=== PATIENT | female | born 1980 ===

== ENCOUNTER 2025-03-20 00:40 | Day surgery (SDC) | payer BC, SELFPAY ==
[2025-03-10 15:04] VITALS: BMI 20.1
--- OUTSIDE RECORDS SUMMARY | 2025-03-20 00:43 | XMS_ITS | Clinical Summary ---
Author Organization [facility] Address [address] [facility], [place] [address] Phone Care Team Providers Care Dry Man Name Role Phone Eduardo Mayes MD Primary Care Provider [phone] Allergies No known active allergies Medications [place] Thyroid 30 mg tablet 03/20/2022 Active modafiniL (PROVIGIL) 200 mg Tablet 03/02/2022 Active Active Problems No known active problems Social History Tobacco Use Types Packs/Day Years Used Date Smoking Tobacco: Never Smokeless Tobacco: Never Alcohol Use Standard Drinks/Week Comments Not Currently 0 (1 standard drink = 0.6 oz pur e alcohol) Comments No Sex and Gender Information Value Date Recorded Sex Assigned at Not on file Legal Sex Female 9:43 AM CDT Gender Identity Not on file Sexual Orientation Not on file Last Filed Vital Signs Vital Sign Reading Time Taken Comments Blood Pressure 92/60 03/23/2022 8:14 AM CDT Pulse 58 03/23/2022 8:14 AM CDT Temperature 36.9 C (98.5 F) 03/23/2022 8:14 AM CDT Respiratory Rate - - Oxygen Saturation 99% 03/23/2022 8:14 AM CDT Inhaled Oxygen Concentration - - Weight 52.2 kg (115 lb) 03/23/2022 8:14 AM CDT Height 157.5 cm (5' 2) 03/23/2022 8:14 AM CDT Body Mass Index 21.03 03/23/2022 8:14 AM CDT Plan of Treatment Health Maintenance Due Date Last Done Comments DTAP/TDAP/TD VACCINES (1 - Tdap) 12/14/1998 HEPATITIS B VACCINES (1 of 3 - 19+ 3-dose series) 12/14/1998 HPV/Cotest (21-29) 12/14/2000 CERVICAL CANCER SCREENING 12/14/2009 HPV/Cotest (30-65) 12/14/2009 PAP SMEAR 12/14/2009 BREAST CANCER SCREENING 02/24/2022 02/24/2021 INFLUENZA VACCINE (#1) 2024 COLORECTAL SCREENING 12/14/2024 Colorectal Cancer Screening 12/14/2024 FIT-DNA Q 3 years 12/14/2024 FIT/FOBT Q 1 year 12/14/2024 Flex Sig/CT Colonography Q 5 years 12/14/2024 HPV VACCINES Aged Out No longer eligi ble based on patient's age to complete this topic Procedures Procedure Name Priority Date/Time Associated Diagnosis Comments MAMMO 3D MICHEAL SCREEN BILAT W OR WO CAD Routine 02/24/2021 from Last 3 Months or Most Recently Relevant to Health Maintenance Results * MAMMO SCRN BILAT 3D MICHEAL W OR WO CAD (02/24/2021) Anatomical Region Laterality Modality Breast Bilateral Mammography us Abstract Provider MAMMO ORDERABLES Edited Result - Final from Last 3 Months or Most Recently Relevant to Health Maintenance Insurance BLUE ACCESS/TRUE BLUE PPO Care Teams Dry Man Relationship Specialty Start Date End Date Eduardo Mayes MD [address] [place] [phone] PCP - General Internal Medicine 03/23/22
--- OUTSIDE RECORDS SUMMARY | 2025-03-20 00:43 | XMS_ITS | Clinical Summary ---
Author Organization [facility] Address [address] [place] [address] Care Team Providers Care Locum Tenens Psychiatrist Name Role Phone Eduardo Mayes MD Primary Care Provider [phone] Allergies No known active allergies Medications NATURE-THROID 32.5 mg tablet TK 1 T PO QD 11/14/2019 Active modafinil (PROVIGIL) 200 mg tablet Take 200 mg by mouth daily Active multivitamin tabletIndication s:Vitamin Deficiency Prevention Take 1 tablet by mouth Active cholecalciferol (VITAMIN D-3) 10,000 unit capsule Take 5,000 Units by mouth daily Active turmeric, bulk, 95 % powder Active potassium 99 mg tablet Take by mouth daily Active vitamin b complex tablet Take 1 tablet by mouth daily Active selenium 200 mcg tablet Take by mouth daily Active Active Problems Problem Noted Date Diagnosed Date Tonsil stone 04/25/2022 Chronic pansinusitis 04/25/2022 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 Surgical History Surgery Date Site/Laterality Comments [place] UNLISTED PROCEDURE HEMIC OR LYMPHATIC SYSTEM Surgery Of The Spleen - spleen removal in 1996 (Added by TW Conv) [place] CHOLECYSTECTOMY Cholecystectomy - 06/22/2008 (Added by TW Conv) SPLENECTOMY, TOTAL Medical History Medical History Date Comments Thyroid disease Nuris's Autoimmune disease Family History Medical History Relation Name Comments Diabetes Father Heart disease Father Thyroid disease Father's Brother Thyroid disease Maternal Grandmother Cancer Mother Cancer Other 1 Cancer - matern al grandmother and mother (Added by TW Conv) Diabetes Other 2 Diabetes Mellit us - paternal grandmother (Added by TW Conv) Thyroid disease Other 3 Thyroid Diso rder - paternal grandmother and paternal uncle (Added by TW Conv) Thyroid disease Paternal Grandmother Relation Name Status Comments Father Father's Brother Maternal Grandmother Mother Other 1 Other 2 Other 3 Paternal Grandmother Social History Tobacco Use Types Packs/Day Years Used Date Smoking Tobacco: Never Smokeless Tobacco: Never Alcohol Use Standard Drinks/Week Comments Never 0 (1 standard drink = 0.6 oz pur e alcohol) AUDIT-C Answer Date Recorded Frequency of Alcohol Consumption Not on file 04/25/2022 Q2: How many drinks containi ng alcohol do you have on a typical day when you are drinking? 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 Gender Identity Not on file Sexual Orientation Not on file Obstetrics History Last Filed Vital Signs Vital Sign Reading Time Taken Comments Blood Pressure 98/63 11/19/2019 9:26 AM WEIGHBRIDGE OPERATOR Pulse 80 11/19/2019 9:26 AM WEIGHBRIDGE OPERATOR Temperature 36.8 C (98.3 F) 11/19/2019 9:26 AM WEIGHBRIDGE OPERATOR Respiratory Rate 20 04/25/2022 4:34 PM CDT Oxygen Saturation - - Inhaled Oxygen Concentration - - Weight 49.9 kg (110 lb) 04/25/2022 4:34 PM CDT Height 157.5 cm (5' 2) 04/25/2022 4:34 PM CDT Body Mass Index 20.12 04/25/2022 4:34 PM CDT Plan of Treatment Health Maintenance Due Date Last Done Comments Breast Cancer Screening-Mammogram 1979 Cervical Cancer Screening 1979 Colon Cancer Screening-Colonoscopy 1979 Depression Screening 1979 Hepatitis C Screening 1979 DTaP/Tdap/Td Vaccine (1 - Tdap) 12/14/1990 Varicella Vaccines (1 of 2 - 13+ 2-dose series) 12/14/1992 Hepatitis B Screening 12/14/1997 Regular Well Visit/Exam 18-64 12/14/1997 Influenza Vaccine (Season Ended) 2025 07/06/2019, 11/07/2017, 10/23/2013 Pneumococcal vaccine <65 Aged Out 018, 10/28/2017 No longer eligible based on patient's age to complete this topic HPV Vaccines Aged Out No longer eligi ble based on patient's age to complete this topic Insurance [facility] Care Teams Locum Tenens Psychiatrist Relationship Specialty Start Date End Date Eduardo Mayes MD [address] [place] [id number] PCP - General 06/08/17
--- OUTSIDE RECORDS SUMMARY | 2025-03-20 00:43 | XMS_ITS | Referral Summary ---
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 Care Teams Home Health Cna Relationship Specialty Start Date End Date Eduardo Mayes MD [address] [place] [phone] PCP - General 06/08/17
[2025-03-20 10:44] VITALS: BP 98/67; PULSE 72; RESP 19; TEMP 37.1; O2SAT 100
[2025-03-20 10:49] LABS: BEDSIDEPREGUCG Negative (Negative)
[2025-03-20] MEDS: LACTATED RINGERS 1,000 ML 150 ML IV CONT (10:56)
--- NOTE | 2025-03-20 11:20 | P.PNAN_ITS ---
Anes - Initial Pre Proc Eval Procedure: Operation Date: 03/20/25 11:30 Proposed Procedures p Screening Colonoscopy - Edouard Sanz MD Date/Time: 03/20/25 11:20 Surgeon: Edouard Sanz MD Pre Op Diagnosis: Encounter for screening for malignant neoplasm of Patient Data Age: 44 Gender: F Height: 1.57 m Weight: 51.6 kg Last Vital Signs Temp 37.1 C 03/20/25 10:44 Pulse 72 03/20/25 10:44 Resp 19 03/20/25 10:44 BP 98/67 L 03/20/25 10:44 Pulse Ox 100 03/20/25 10:44 O2 Del Method Room Air 03/20/25 10:44 Allergies Allergy/AdvReac Type Severity Reaction Status Date / Time No Known Allergies Allergy Unknown Verified 03/20/25 10:43 Home Medications ?Medication ?Instructions ?Recorded ?Confirmed ?Type cholecalciferol (vitamin D3) 50 2,000 unit PO DAILY 10/29/19 03/10/25 History mcg (2,000 unit) tablet multivitamin,[id number] 1 tablet PO DAILY 10/29/19 03/10/25 History (Complete Multivitamin tablet) modafinil 200 mg tablet 100 mg PO QAM 04/26/20 03/10/25 History omega-3 fatty acids 1,000 mg 1,000 mg PO DAILY 04/26/20 03/10/25 History capsule (Fish Oil Concentrate) coconut oil 1,000 mg capsule 1,000 mg PO DAILY 04/27/22 03/10/25 History probiotic 2,000,000,000 BYMOUTH 04/27/22 02/02/25 History thyroid (pork) 30 mg tablet 30 mg PO DAILY #90 tabs 04/30/24 03/20/25 Rx ([place] Thyroid) Laboratory Tests 03/20/25 10:44 POC Urine HCG, Qual Negative (Negative) Patient hx anesthesia problems: post op nausea/vomiting Family hx anesthesia problems: none Results Review: All pre-operative results and documents have been reviewed as part of the pre- operative evaluation. [facility] Past Medical History Medical History Hypothyroidism (acquired) Thyroid nodule Surgical History Surgical History History of cholecystectomy History of splenectomy Family History Family History Other Cerebrovascular accident Diabetes mellitus Family history of Alzheimer's disease Family history of alcoholism Family history of arthritis Family history of chronic obstructive pulmonary disease Family history of congestive heart failure Family history of hearing loss Family history of lung cancer Family history of lung disease Family history of malignant neoplasm of ovary Family history of thyroid disease Social History Social History Smoking status: Never smoker Alcohol intake: never Anes - Eval Final PreProcedure Day of Procedure 03/20/25 11:20 Patient weight: normal Heart: regular rate and rhythm Lungs: clear to auscultation Airway: Mallampati scale class II Neurological: alert and oriented Last oral intake: >/= 8 hours ASA classification: II Emergent: no Anesthetic plan: proceed Anesthesia type and monitoring: general GIVS and standard monitoring Results Review: All pre-operative results and documents have been reviewed as part of the pre- operative evaluation. Informed Consent: The patient's anesthetic plan and its attendant risks and benefits were discussed with the patient/family/POA. Questions were solicited and answers provided to the satisfaction of the patient/family/POA.
--- NOTE | 2025-03-20 11:32 | P.HP_ITS ---
History of Present Illness History of Present Illness Consent: Risks, benefits, and alternatives have been discussed and questions answered. Patient agrees to proceed with procedure. Chief complaint: Encounter for screening for malignant neoplasm of Narrative: Agustina Tovar is a 44 year old female here for first screening colonoscopy Review of Systems Review of Systems: All systems reviewed & are unremarkable except as noted in HPI and below PMFSH Past Medical History Medical History (Updated 03/20/25 @ 11:32 by Edouard Sanz MD) Colon cancer screening Hypothyroidism (acquired) Thyroid nodule Surgical History Surgical History History of cholecystectomy History of splenectomy Family History Family History Other Cerebrovascular accident Diabetes mellitus Family history of Alzheimer's disease Family history of alcoholism Family history of arthritis Family history of chronic obstructive pulmonary disease Family history of congestive heart failure Family history of hearing loss Family history of lung cancer Family history of lung disease Family history of malignant neoplasm of ovary Family history of thyroid disease Social History Social History Smoking status: Never smoker Alcohol intake: never Meds Home Medications and Allergies Home Medications ?Medication ?Instructions ?Recorded ?Confirmed ?Type cholecalciferol (vitamin D3) 50 2,000 unit PO DAILY 10/29/19 03/10/25 History mcg (2,000 unit) tablet multivitamin,[id number] 1 tablet PO DAILY 10/29/19 03/10/25 History (Complete Multivitamin tablet) modafinil 200 mg tablet 100 mg PO QAM 04/26/20 03/10/25 History omega-3 fatty acids 1,000 mg 1,000 mg PO DAILY 04/26/20 03/10/25 History capsule (Fish Oil Concentrate) coconut oil 1,000 mg capsule 1,000 mg PO DAILY 04/27/22 03/10/25 History probiotic 2,000,000,000 BYMOUTH 04/27/22 02/02/25 History thyroid (pork) 30 mg tablet 30 mg PO DAILY #90 tabs 04/30/24 03/20/25 Rx ([place] Thyroid) Allergies Allergy/AdvReac Type Severity Reaction Status Date / Time No Known Allergies Allergy Unknown Verified 03/20/25 10:43 Vital Signs Vital Signs - 24 hr 03/20/25 10:44 Temperature 98.7 F Pulse Rate 72 Respiratory Rate 19 Blood Pressure 98/67 L Pulse Oximetry 100 Oxygen Delivery Room Air Exam Const: General: comfortable and no acute distress HENMT: Face/Nose/Sinus: Normal nares present Eyes: General: appearance normal, both eyes and all related structures Neck: Neck: no JVD Resp: Auscultation: clear to auscultation bilaterally Cardio: Rate: regular rate Rhythm: regular rhythm GI: Inspection: non-distended GI Palp: Yes Soft to palpation Skin: General skin exam: normal color Neuro: General: gait normal Speech: normal speech Extrem: General: normal to inspection Psych: Mental Status: mental status grossly normal Assessment and Plan Assessment and plan (1) Colon cancer screening: Code(s): Z12.11 - Encounter for screening for malignant neoplasm of colon Status: Acute Assessment and Plan: colonoscopy
--- NOTE | 2025-03-20 11:45 | S_PTH ---
PATIENT: Agustina Tovar V LOC: [facility]#:[id number] AGE/SX: 44/F ROOM: RE03/20/[address]: Edouard Sanz MD : 1980 BED: DIS: 03/20/2025 SPEC #: [id number] RECD: 03/20/25 13:26 STATUS: NILES RESerge #: [id number] ROWAN: 03/20/25 11:[address]: Edouard Sanz DEPT: [facility] Surgical RECD BY: Michaela Wheat ENTERED: 03/20/25 13:26 SP TYPE: Surgical OTHR DR: Terese Ricketts, ARLET Tissues: A - Colon Polypectomy Procedures: Hematoxylin and Eosin Stain Gross and Microscopic Level 4
[2025-03-20 11:50] VITALS: BP 89/49; PULSE 55; RESP 20; O2SAT 100
[2025-03-20 12:00] VITALS: BP 81/46; PULSE 74; RESP 20; O2SAT 100
[2025-03-20 12:10] VITALS: BP 84/53; PULSE 66; RESP 20; O2SAT 100
[2025-03-20 12:12] VITALS: BP 97/66; PULSE 65; RESP 20; O2SAT 100
== END 2025-03-20 12:21 | disposition home or self-care (01) ==
PROVIDERS: Anesthesiology; PCP Nurse Practitioner Family; Referring Provider Nurse Practitioner Family; Visit Provider Internal Medicine Gastroenterology
PROC: 0DJD8ZZ Inspection of Lower Intestinal Tract, Via Natural or Artificial Opening Endoscopic (ICD-10-PCS; CPT 45378; principal; 2025-03-20 11:30)
DX: Z12.11 Encounter for screening for malignant neoplasm of colon (principal); K63.5 Polyp of colon
CPT/HCPCS: 45385; 88305; J2003; J2371; J2704; J7120